=== PATIENT | male | born 1975 | race Caucasian/White ===

== ENCOUNTER 2017-01-10 19:54 | Emergency (ER) | payer OTHER ==
[2017-01-10 21:40] LABS: BASOPHIL 0.6 % (0-2); HCT 45.6 % (42.0-52.0); LYMPHOCYTE 22.8 % (15-48); MCH 28.9 pg (25.0-31.0); MCHC 35.1 g/dL (32.0-36.0); MCV 82.5 fL (78.0-100.0); MPV 11.1 fL (6.0-9.5); NEUTROPHIL 64.6 % (41-80); PLT 159 K/uL (150-400); RBC 5.53 M/uL (4.70-6.00); RDW 16.4 % (11.5-14.0); WBC 9.5 K/uL (4.0-10.5)
[2017-01-10 21:51] LABS: INR 1.08 (0.9-1.2); PROTHROMBIN TIME 13.6 SECONDS (11.7-14.0); PTT 29.3 SECONDS (23.2-31.4)
[2017-01-10 21:59] LABS: ALBUMIN 4.3 g/dL (3.5-5.0); BILIRUBIN - TOTAL 0.8 mg/dL (0.1-1.0); CREATININE 0.9 mg/dL (0.7-1.2); GLOBULIN (CALCULATION) 2.8 g/dL (2.2-4.2); MAGNESIUM 2.16 mg/dL (1.40-2.10); POTASSIUM 3.7 mmol/L (3.5-5.1); TOTAL PROTEIN 7.1 g/dL (6.4-8.3)
[2017-01-10 22:05] LABS: D-DIMER 8.37 ug/mLFEU (0.00-0.41)
[2017-01-10 22:06] LABS: MYOGLOBIN 76 ng/mL (26-65); PRO-BNP 7 pg/mL (0-125); TROPONIN T < 0.010 ng/mL
[2017-01-10 22:09] LABS: CKMB 11.57 ng/mL (0.97-4.94)
== END 2017-01-11 04:44 | disposition other institution (70) ==
LOC: FER 19:54
PROVIDERS: Emergency Medicine Emergency Medical Services
DX: I26.99 Other pulmonary embolism without acute cor pulmonale (principal); R21 Rash and other nonspecific skin eruption; I10 Essential (primary) hypertension; E78.5 Hyperlipidemia, unspecified; F31.9 Bipolar disorder, unspecified; E86.9 Volume depletion, unspecified; F17.210 Nicotine dependence, cigarettes, uncomplicated; Z88.0 Allergy status to penicillin; Z88.2 Allergy status to sulfonamides; Z88.1 Allergy status to other antibiotic agents; Z79.899 Other long term (current) drug therapy
CPT/HCPCS: 36415; 71010; 71275; 80053; 80178; 82550; 82553; 83735; 83874; 83880; 84484; 85025; 85379; 85610; 85730; 87040; 93005; 96372; J2270; J2405; Q9967

== ENCOUNTER 2022-03-05 12:55 | Emergency (ER) | payer OTHER ==
[~2022-03-05 12:55] MED LIST: ATARAX25 MG PO; CHLORTHALIDONE25 MG PO; FLEXERIL10 MG PO; HYDROCODONE-APA1 TAB PO; INDOCIN25 MG PO; LITHIUM300 MG PO; TRAZODONE 150M150 MG PO; TRILEPTAL150 MG PO; XARELTO15 MG PO; ZYPREXA 5MG TABL5 MG PO
[2022-03-05 15:35] LABS: BILIRUBIN NEGATIVE (NEGATIVE); BLOOD NEGATIVE Ery/uL (NEGATIVE); CLARITY CLEAR (CLEAR); COLOR YELLOW (YELLOW); GLUCOSE (U) NORMAL (NORMAL); LEUKOCYTES NEGATIVE Leu/uL (NEGATIVE); NITRITE NEGATIVE (NEGATIVE); PROTEIN NEGATIVE (NEGATIVE); SPECIFIC GRAVITY 1.025 (1.001-1.030); UROBILINOGEN 0.2 mg/dL (0.2-1.0)
[2022-03-05] MEDS ORDERED: PYRIDIUM200 M1 PO (16:05)
== END 2022-03-05 16:44 | disposition home or self-care (01) ==
LOC: FER 12:55
PROVIDERS: Emergency Medicine
DX: N39.0 Urinary tract infection, site not specified (principal); I10 Essential (primary) hypertension; Z88.2 Allergy status to sulfonamides; Z88.1 Allergy status to other antibiotic agents; Z79.899 Other long term (current) drug therapy; Z28.310 Unvaccinated for COVID-19
CPT/HCPCS: 81003; 87088